=== PATIENT | male | born 1970 | race Caucasian/White ===

== ENCOUNTER 2017-12-30 01:29 | Observation (INO) | payer OTHER ==
[~2017-12-30] VITALS: Ht 175.3 cm; Wt 75.7 kg
[2017-12-30] VITALS (7 sets, daily range): BP systolic 93–140; BP diastolic 56–82
--- NOTE | ~2017-12-30 | EKG ---
[address] [address] ELECTROCARDIOGRAM REPORT Name: LANDON ORONA Room #: 432-P [facility]#: [id number] Admission: 12/30/17 Attend Phys: Mateus Trevino Discharge: 12/31/17 Date of : 72 Report #: [id number] THIS REPORT FOR: //name// [facility] ED Test Date: 2017-12-30 Test Time: 01:50:10 Pat Name: LANDON ORONA Department: Room: [facility] Gender: M Nursing Associate: GIOVANNY : 1970 Requested By: Jed Uriostegui Order Number: [id number] MD: Mann Cole Measurements Intervals [place] Rate: 61 P: 45 AL: 199 QRS: 14 QRSD: 94 T: 28 QT: 457 QTc: 461 Interpretive Statements Sinus rhythm RSR' in V1 or V2, probably normal variant No previous ECG available for comparison Electronically Signed On 01-01-2018 8:26:30 CDT by Mann Cole [email or web address] <ELECTRONICALLY SIGNED> By: Mann Cole MD, [facility] 01/01/18 08 9 9 Mann Cole MD, [facility] /EPI
--- NOTE | ~2017-12-30 | PATH ---
[facility] [address] [place] [address] PATHOLOGY RPT PROCEDURE Name: LANDON HARRIS Room #: 432-P [facility] Irma Dutton#: [id number] Admission: 12/30/17 Date of : 72 Discharge: 12/31/17 Report #: [id number] Path Case #: [id number] [facility] Accession Number: [id number] . 01 Material submitted: . APPENDIX . 01 Clinical history: . Acute appendicitis . 02 Diagnosis: Appendix, "appendix, appendectomy": - Acute suppurative appendicitis with acute inflammation extending into the periappendiceal fat and serosa with microabscess formation. (SHA:[place]; 01/02/2018) QMS/01/02/2018 . 02 Electronically signed: . Marty Burton MD, Pathologist NPI- [id number] . 01 Gross description: . The specimen is received in formalin, labeled "Landon Harris Jr, appendix" and consists of an appendix measuring 8.5 cm in length and ranging from 0.6-1.2 cm. There is mesoappendix lining the entire specimen measuring up to 2.0 cm. The serosa is casanova-brown and covered with thick fibrous adhesions with an area of wall thinning, 2.2 cm from the proximal stapled margin. The margin is inked and sectioning reveals a markedly dilated lumen (up to 1.1 cm) containing brown fecal material. Loader sections are submitted in A1. (SDY; 01/01/2018) SYU/SYU . 02 Pathologist provided ICD-10: K35.80 . 02 CPT . 326973 Specimen Comment: A courtesy copy of this report has been sent to Specimen Comment: [phone]. Specimen Comment: Report sent to Performed at: [address] [id number] MD Tong Tucker MD Phone: [phone] Performed at: [address] [address] PATHOLOGY RPT PROCEDURE Name: HARRISLANDON JR Room #: 432-P [facility] M.R.#: [id number] Admission: 12/30/17 Date of : 72 Discharge: 12/31/17 Report #: [id number] Path Case #: [id number] [address] [facility] [place], [place] [id number] MD Willa Bailey MD Phone: [phone]
[2017-12-30] MEDS ORDERED: ADDERALL 20 MG20 MG PO (01:42)
[2017-12-30 01:46] LABS: ABSOLUTE NEUTROPHILS 15.4 thou/uL (1.4-8.2); BASOPHILS 0.4 % (0.0-2.0); EOSINOPHILS 0.3 % (0.0-3.0); HEMATOCRIT 51.9 % (42.0-52.0); HEMOGLOBIN 17.4 gm/dL (14.0-18.0); LYMPHOCYTES 8.1 % (24.0-44.0); MCH 30.5 pg (26.0-34.0); MCHC 33.5 g/dL (28.0-37.0); MCV 90.9 fL (80.0-100.0); MONOCYTES 5.3 % (1.0-8.0); PLATELET COUNT 215 thou/uL (150-400); POLYS 85.9 % (36.0-66.0); RBC 5.71 mil/uL (4.50-6.00); RDW 13.6 % (10.5-14.5)
[2017-12-30 01:55] LABS: URINE BILIRUBIN NEGATIVE (Negative); URINE BLOOD NEGATIVE (Negative); URINE CLARITY CLEAR; URINE COLOR YELLOW; URINE GLUCOSE-RANDOM* NEGATIVE (Negative); URINE KETONES NEGATIVE (Negative); URINE LEUKOCYTES-REFLEX NEGATIVE (Negative); URINE NITRITE-REFLEX NEGATIVE (Negative); URINE PROTEIN (DIPSTICK) NEGATIVE (Negative); URINE SPECIFIC GRAVITY <= 1.005 (1.005-1.035); URINE UROBILINOGEN 0.2 E.U./dl (0.2-1.0)
[2017-12-30 01:55] LABS: ANION GAP 9 mmol/L (7-16); BUN 14 mg/dL (7-18); CALCIUM 10.2 mg/dL (8.5-10.1); CHLORIDE 98 mmol/L (98-107); CO2 26 mmol/L (21-32); GLUCOSE 115 mg/dL (74-106); POTASSIUM 3.8 mmol/L (3.5-5.1); SODIUM 133 mmol/L (136-145)
[2017-12-30 02:03] LABS: ALBUMIN 4.7 g/dL (3.4-5.0); LIPASE 159 U/L (73-393); SGOT 20 U/L (15-37); SGPT 37 U/L (30-65); TOTAL BILIRUBIN 0.9 mg/dL (<0.1-1.0); TROPONIN-I <0.06 ng/mL (<0.06)
[2017-12-30] MEDS ORDERED: PREVACID30 MG PO (11:39)
[2017-12-30] MEDS ORDERED: MAGOX 400400 MG PO (11:39)
[2017-12-30] MEDS ORDERED: NORCO 5-325 TA1 EACH PO (13:18)
[2017-12-30] MEDS ORDERED: ONDANSETRON HCL4 M2 PO (13:18)
[2017-12-30] MEDS ORDERED: AUGMENTIN 875-1 EACH PO (13:18)
[2017-12-31 04:29] VITALS: BP 96/60
[2017-12-31 05:12] LABS: ABSOLUTE NEUTROPHILS 17.3 thou/uL (1.4-8.2); BASOPHILS 0.1 % (0.0-2.0); HEMATOCRIT 42.7 % (42.0-52.0); LYMPHOCYTES 3.5 % (24.0-44.0); MCH 30.3 pg (26.0-34.0); MCHC 32.8 g/dL (28.0-37.0); MCV 92.5 fL (80.0-100.0); MONOCYTES 5.3 % (1.0-8.0); PLATELET COUNT 168 thou/uL (150-400); POLYS 91.1 % (36.0-66.0); RBC 4.61 mil/uL (4.50-6.00); RDW 13.4 % (10.5-14.5)
[2017-12-31 05:29] LABS: POTASSIUM 4.1 mmol/L (3.5-5.1)
[2017-12-31 07:42] VITALS: BP 102/61
[2017-12-31 09:52] VITALS: BP 102/61
== END 2017-12-31 10:52 | disposition home or self-care (01) ==
LOC: ER 01:29 → EROBS 03:50 → 4E 04:33
PROVIDERS: Emergency Medicine; Surgery
DX: K35.80 Unspecified acute appendicitis (principal); R11.10 Vomiting, unspecified; Z23 Encounter for immunization
CPT/HCPCS: 50101; 50249; 50411; 50555; 50558; 50739; 50740; 50962; 51489; 51975; 52265; 53307; 53310; 54022; 54118; 56525; 56526; 62110; 62900; 70005